=== PATIENT | male | born 1985 | race American Indian/Alaskan Native ===

== ENCOUNTER 2021-11-16 08:45 | Emergency (ER) | payer SELFPAY ==
[2021-11-16] MEDS ORDERED: ASPIRIN 325 MG TAB PO ONE (09:16)
--- NOTE | 2021-11-16 09:47 | XRay Report ---
XR chest routine 2V INDICATION / CLINICAL INFORMATION: syncope COMPARISON: None available. FINDINGS: SUPPORT DEVICES: None. HEART / MEDIASTINUM: No significant abnormality. LUNGS / PLEURA: Lungs are clear. Costophrenic sulci are sharp. No pneumothorax. ADDITIONAL FINDINGS: No significant additional findings. IMPRESSION: 1. No acute findings. Signer Name: Demarco Shanks MD Signed: 11/16/2021 9:42 AM Workstation Name: [email or web address]
[2021-11-16 10:49] LABS: Basophils % (Auto) 0.4 % (0.0-1.8); Eosinophils # (Auto) 0.1 K/mm3 (0.0-0.4); Eosinophils % (Auto) 1.4 % (0.0-4.3); Hemoglobin 14.4 gm/dl (11.8-15.2); Lymphocytes % (Auto) 16.4 % (13.4-35.0); Mean Corpuscular HGB Conc 33 % (32-34); Mean Corpuscular Volume 89 fl (84-94); Monocytes # (Auto) 0.8 K/mm3 (0.0-0.8); Monocytes % (Auto) 13.3 % (0.0-7.3); Platelet Count 194 K/mm3 (140-440); Red Blood Count 4.85 M/mm3 (3.65-5.03); Red Cell Distribution Width 13.7 % (13.2-15.2)
[2021-11-16 11:11] LABS: Alanine Aminotransferase 10 units/L (7-56); Albumin 4.2 g/dL (3.9-5); BUN/Creatinine Ratio 7; Blood Urea Nitrogen 8 mg/dL (9-20); Calcium 9.2 mg/dL (8.4-10.2); Hemolysis Index 4
[2021-11-16 11:15] LABS: INR 0.91 (0.87-1.13)
[2021-11-16 11:16] LABS: Partial Thromboplastin Time 33.7 Sec. (24.2-36.6)
[2021-11-16] MEDS ORDERED: SODIUM CHLORIDE 0.9% 1000 ML 1,000 ML IV ONE (11:48)
[2021-11-16] MEDS ORDERED: ceFAZolin 1 GM VIAL IM ONE (11:49)
[2021-11-16] MEDS ORDERED: WATER FOR INJ Sterile (PF) 10 ML ONE (12:16)
--- NOTE | 2021-11-16 14:42 | Cat Scan Report ---
CT head/brain wo con INDICATION: syncope. TECHNIQUE: Routine CT head. All CT scans at this location are performed using CT dose reduction for A SATHISH by means of automated exposure control. COMPARISON: None. FINDINGS: Intracranial: Charles-white matter differentiation is maintained. No intracranial hemorrhage. No extra a xial collection. No hydrocephalus. No herniation. Sinuses: Complete opacification right maxillary sinus.. Orbits: Globes are intact. Calvarium: No acute fracture. IMPRESSION: 1. No acute intracranial abnormality. 2. Right maxillary sinus disease with complete opacification of the sinus. Signer Name: Demarco Shanks MD Signed: 11/16/2021 2:38 PM Workstation Name: [id number]
[2021-11-16 14:54] LABS: Benzodiazepines Screen,Urine Negative; Methadone Screen,Urine Negative; Opiate Screen,Urine Negative
--- NOTE | 2021-11-16 14:55 | Emergency Department Report ---
ED Syncope HPI - General Chief Complaint: Syncope Stated Complaint: FELL/KWAME HIT HEAD Time Seen by Provider: 11/16/21 11:19 Source: patient Exam Limitations: no limitations - History of Present Illness Initial Comments: Pt states he experienced a syncopal episode Monday night while at home. Pt reports he broke out into a sweat and passed out hitting the back of head. He has a laceration on the crown of his head with controlled bleeding. pt states his neck on the left side is sore and he has been experiencing a posterior headache since his fall. Timing/Prior Episodes: no prior history Precipitating Factors: Positive: lightheadedness Context: activity Loss of Consciousness: brief (seconds) Current Symptoms: back to normal - Related Data Allergies/Adverse Reactions: Allergies No Known Allergies Allergy (Verified 11/16/21 09:10) ED Review of Systems ROS: Stated complaint: FELL/KWAME HIT HEAD Other details as noted in HPI Constitutional: denies: chills, fever Eyes: denies: eye pain, eye discharge, vision change ENT: denies: ear pain, throat pain Respiratory: denies: cough, shortness of breath, wheezing Cardiovascular: denies: chest pain, palpitations Endocrine: no symptoms reported Gastrointestinal: denies: abdominal pain, nausea, diarrhea Genitourinary: denies: urgency, dysuria Musculoskeletal: denies: back pain, joint swelling, arthralgia Skin: denies: rash, lesions Neurological: denies: headache, weakness, paresthesias Psychiatric: denies: anxiety, depression Hematological/Lymphatic: denies: easy bleeding, easy bruising ED Past Medical Hx - Past Medical History Previous Medical History?: No - Surgical History Past Surgical History?: No - Social History Smoking Status: Current Every Day Smoker Substance Use Type: Cocaine, Marijuana ED Physical Exam - General Limitations: No Limitations General appearance: alert - Head Head exam: Present: normocephalic, other - Expanded Head Exam Expanded Head exam: Present: abrasion, contusion - Eye Eye exam: Present: normal appearance - ENT ENT exam: Present: mucous membranes moist - Neck Neck exam: Present: normal inspection - Respiratory Respiratory exam: Present: normal lung sounds bilaterally. Absent: respiratory distress - Cardiovascular Cardiovascular Exam: Present: regular rate, normal rhythm. Absent: systolic murmur, diastolic murmur, rubs, gallop - GI/Abdominal GI/Abdominal exam: Present: soft, normal bowel sounds - Rectal Rectal exam: Present: deferred - Extremities Exam Extremities exam: Present: normal inspection - Back Exam Back exam: Present: normal inspection - Neurological Exam Neurological exam: Present: alert, oriented X3 - Psychiatric Psychiatric exam: Present: normal affect, normal mood - Skin Skin exam: Present: warm, dry, intact, normal color. Absent: rash ED Course Vital Signs 11/16/21 11/16/21 11/16/21 09:01 10:49 10:53 Temperature 99.1 F 98.5 F Pulse Rate 77 69 Respiratory 18 18 Rate Blood Pressure 131/83 Blood Pressure 134/82 [Left] O2 Sat by Pulse 100 99 99 Oximetry 11/16/21 11/16/21 11/16/21 11:01 12:01 13:01 Temperature Pulse Rate 72 71 73 Respiratory 19 19 25 H Rate Blood Pressure 134/82 134/86 134/86 Blood Pressure [Left] O2 Sat by Pulse 98 99 99 Oximetry 11/16/21 14:01 Temperature Pulse Rate Respiratory Rate Blood Pressure 134/86 Blood Pressure [Left] O2 Sat by Pulse 99 Oximetry ED Medical Decision Making - Lab Data Result diagrams: 11/16/21 09:49 11/16/21 09:49 Critical care attestation.: If time is entered above; I have spent that time in minutes in the direct care of this critically ill patient, excluding procedure time. ED Disposition Clinical Impression: Head injury, Scalp laceration Disposition: 01 HOME / SELF CARE / HOMELESS Is pt being admited?: No Does the pt Need Aspirin: No Condition: Stable Referrals: PRIMARY CARE, [Primary Care Provider] - 3-5 Days
[2021-11-16 15:20] LABS: Amphetamine Screen,Urine Positive; Cannabinoid Screen,Urine Positive; Cocaine Screen,Urine Positive
[2021-11-16 16:08] LABS: Mucus,Urine FEW /HPF; WBC,Urine < 1.0 /HPF (0.0-6.0)
[2021-11-16 16:14] VITALS: BP 145/82
[2021-11-16 16:24] LABS: Bilirubin,Urine Negative (Negative); Blood,Urine Negative (Negative); Color,Urine Yellow (Yellow)
[2021-11-16 16:25] LABS: Protein,Urine <15 mg/dL mg/dL (Negative)
--- NOTE | 2021-11-16 19:00 | Electrocardiograph Report ---
[facility] Test Date: 2021-11-16 Test Time: 09:14:56 Pat Name: RICK CORDOVA Department: Room: Gender: M Process Owner: MARGO : 1985 Requested By: ED DOC Order Number: [id number] Reading MD: Deisy Jonas Measurements Intervals [place] Rate: 69 P: 60 HI: 144 QRS: 34 QRSD: 77 T: 46 QT: 367 QTc: 393 Interpretive Statements Sinus rhythm No previous ECG available for comparison Electronically Signed On 11-16-2021 19:00:24 EDT by Deisy Jonas
== END 2021-11-16 16:14 | disposition home or self-care (01) ==
LOC: ED 08:45
DX: S09.90XA Unspecified injury of head, initial encounter (principal); S01.01XA Laceration without foreign body of scalp, initial encounter; F17.290 Nicotine dependence, other tobacco product, uncomplicated; W19.XXXA Unspecified fall, initial encounter; Y93.89 Activity, other specified; Y92.89 Other specified places as the place of occurrence of the external cause; Y99.8 Other external cause status
CPT/HCPCS: 36415; 70450; 71046; 80053; 80307; 81001; 84484; 85025; 85610; 85730; 86140; 93005; 96360; 96372; 99284; J0690; J7030